=== PATIENT | female | born 1980 | race Caucasian/White ===

== ENCOUNTER 2017-01-03 12:25 | Emergency (ER) | payer OTHER ==
[2017-01-03 12:45] VITALS: BMI 20.3
--- NOTE | 2017-01-03 13:00 | PDOC ---
History of Present Illness - General History Source: Patient Exam Limitations: Intoxication - History of Present Illness Initial Comments: 01/03/17 13:41 The patient is a 36 year old female with significant past medical history of alcohol abuse who presents to the emergency department intoxicated. The patient states she is going through withdrawals. The patient tried to go to [facility] earlier today but was referred to the ED for intoxication and an abrasion on her right cheek. The patient is unsure when she fell. She states she drinks once a week. History is limited secondary to patients condition. <Ladan Galeas - Last Filed: 01/03/17 13:52> <Kerry Cortez - Last Filed: 01/05/17 09:52> <Lorraine Osorio - Last Filed: 01/05/17 10:12> - General Chief Complaint: Alcohol intoxication Stated Complaint: INTOX Time Seen by Provider: 01/03/17 12:48 Past History <Ladan Galeas - Last Filed: 01/03/17 13:52> <Kerry Cortez - Last Filed: 01/05/17 09:52> - Past Medical History Anemia: No Asthma: No Cancer: No Cardiac Disorders: No CVA: No COPD: No CHF: No Dementia: No Diabetes: No GI Disorders: No Disorders: No HTN: No Hypercholesterolemia: No Kidney Stones: No Liver Disease: No Suicide Attempt (Hx): No (denies) Seizures: No Thyroid Disease: No Other medical history: alcohol abuse - Surgical History Abdominal Surgery: No Appendectomy: No Cardiac Surgery: No Cholecystectomy: No Lung Surgery: No Neurologic Surgery: No Orthopedic Surgery: No - Reproductive History PID: No - Psycho/Social/Smoking Cessation Hx Anxiety: No Suicidal Ideation: No Smoking History: Never smoked Have you smoked in the past 12 months: No Number of Cigarettes Smoked Daily: 3 If you are a former smoker, when did you quit?: 1 Cigars Per Day: 2 Information on smoking cessation initiated: No 'Breaking Loose' booklet given: 08/15/16 Hx Alcohol Use: Yes (vodka a lot) Drug/Substance Use Hx: No Substance Use Type: Alcohol Hx Substance Use Treatment: Yes <Lorraine Osorio - Last Filed: 01/05/17 10:12> - Past Medical History Allergies/Adverse Reactions: Allergies Allergy/AdvReac Type Severity Reaction Status Date / Time penicillin G Allergy Severe Hives Verified 08/15/16 16:19 Home Medications: Ambulatory Orders NK [No Known Home Medication] 01/20/16 Review of Systems - Review of Systems Able to Perform ROS?: No (Intoxicated) <Ladan Galeas - Last Filed: 01/03/17 13:52> *Physical Exam - Vital Signs Last Vital Signs Temp Pulse Resp BP Pulse Ox 97 F L 120 H 18 125/80 100 01/03/17 12:25 01/03/17 12:25 01/03/17 12:25 01/03/17 12:25 01/03/17 12:25 - Physical Exam Comments: 01/03/17 13:52 GENERAL: Awake, alert, +alcohol on breath, in no acute distress HEAD: +Abrasion to right cheek. EYES: +Horizontal nystagmus. PERRLA, EOMI, sclera anicteric, conjunctiva clear ENT: Auricles normal inspection, hearing grossly normal, nares patent, oropharynx clear without exudates. Moist mucosa NECK: Normal ROM, supple, no lymphadenopathy, JVD, or masses LUNGS: Breath sounds equal, clear to auscultation bilaterally. No wheezes, and no crackles HEART: Regular rate and rhythm, normal S1 and S2, no murmurs, rubs or gallops ABDOMEN: Soft, nontender, normoactive bowel sounds. No guarding, no rebound. No masses EXTREMITIES: Normal range of motion, no edema. No clubbing or cyanosis. No cords, erythema, or tenderness NEUROLOGICAL: Cranial nerves II through XII grossly intact. Normal speech SKIN: Warm, Dry, normal turgor, no rashes or lesions noted. <AdalJoseLadan - Last Filed: 01/03/17 13:52> - Vital Signs Last Vital Signs Temp Pulse Resp BP Pulse Ox 97.9 F 98 H 18 93/48 95 01/03/17 20:12 01/03/17 20:12 01/03/17 20:12 01/03/17 20:12 01/03/17 20:12 <Kerry Cortez - Last Filed: 01/05/17 09:52> - Vital Signs Last Vital Signs Temp Pulse Resp BP Pulse Ox 97 F L 120 H 18 125/80 100 01/03/17 12:25 01/03/17 12:25 01/03/17 12:25 01/03/17 12:25 01/03/17 12:25 <Lorraine Osorio - Last Filed: 01/05/17 10:12> ED Treatment Course - LABORATORY CBC & Chemistry Diagram: 01/03/17 13:03 01/03/17 13:03 - Medications Given in the ED: ED Medications Discontinued Medications Generic Name Dose Route Start Last Admin Trade Name Freq PRN Reason Stop Dose Admin Haloperidol 5 mg 01/03/17 13:01 01/03/17 13:08 Haldol Injection (Fast Acting) - IM 01/03/17 13:02 5 mg ONCE ONE Administration Lorazepam 2 mg 01/03/17 13:01 01/03/17 13:07 Ativan Injection - IM 01/03/17 13:02 2 mg ONCE ONE Administration <Ladan Galeas - Last Filed: 01/03/17 13:52> - LABORATORY CBC & Chemistry Diagram: 01/03/17 13:03 01/03/17 13:03 - ADDITIONAL ORDERS Additional order review: Laboratory Results 01/03/17 01/03/17 01/03/17 13:03 13:03 13:03 Sodium 146 H Potassium 4.7 D Chloride 111 H D Carbon Dioxide 23 Anion Gap 12 BUN 7 Creatinine 0.5 L D Creat Clearance w eGFR > 60 Random Glucose 101 D Calcium 8.9 Total Bilirubin 0.3 D AST 41 H D ALT 38 D Alkaline Phosphatase 77 D Total Protein 7.7 Albumin 4.1 Serum , Qual Negative Alcohol, Quantitative 475.3 H* 01/03/17 13:03 RBC 3.95 MCV 103.6 H MCHC 33.5 RDW 13.5 MPV 8.2 D Neutrophils % 52.2 Lymphocytes % 33.6 Monocytes % 12.2 H Eosinophils % 1.4 Basophils % 0.6 - Medications Given in the ED: ED Medications Discontinued Medications Generic Name Dose Route Start Last Admin Trade Name Freq PRN Reason Stop Dose Admin Haloperidol 5 mg 01/03/17 13:01 01/03/17 13:08 Haldol Injection (Fast Acting) - IM 01/03/17 13:02 5 mg ONCE ONE Administration Folic Acid 1 mg/ Thiamine HCl 1,000 mls @ 125 mls/hr 01/03/17 13:01 01/03/17 13 :45 100 mg/ Multivitamins/Minerals IVPB 01/03/17 21:00 125 mls/hr 10 ml/ Sodium Chloride ONCE ONE Administration Lorazepam 2 mg 01/03/17 13:01 01/03/17 13:07 Ativan Injection - IM 01/03/17 13:02 2 mg ONCE ONE Administration <Kerry Cortez - Last Filed: 01/05/17 09:52> - LABORATORY CBC & Chemistry Diagram: 01/03/17 13:03 01/03/17 13:03 <Lorraine Osorio - Last Filed: 01/05/17 10:12> Medical Decision Making - Medical Decision Making 01/03/17 17:[address] Cortez. Sent from [facility], where she was requesting detox for withdrawal, found to be intoxicated. She required sedation with ativan /haldol for agitation, as she was at risk for falls due to extreme intoxication. Found to have alcohol level >400. She has been sleeping comfortably. Continue to monitor to clinical sobriety, then can discuss if she would like detox. <Lorraine Osorio - Last Filed: 01/05/17 10:12> *DC/Admit/Observation/Transfer - Attestations Scribe Attestion: 01/03/17 13:41 Documentation prepared by Ladan Galeas, acting as medical technologist chemistry for Lorraine Osorio MD. <Ladan Galeas - Last Filed: 01/03/17 13:52> <Kerry Cortez - Last Filed: 01/05/17 09:52> - Discharge Dispostion Admit: No <Lorraine Osorio - Last Filed: 01/05/17 10:12> Diagnosis at time of Disposition: Alcohol intoxication Qualifiers: Complication of substance-induced condition: uncomplicated Qualified Code(s): F10.120 - Alcohol abuse with intoxication, uncomplicated - Discharge Dispostion Disposition: HOME Condition at time of disposition: Stable - Patient Instructions Printed Discharge Instructions: DI for Alcohol Abuse
[2017-01-03] MEDS ORDERED: LORAZEPAM CARPU-JECT 2 MG/ML DISP.SYRIN IM ONE (13:01)
[2017-01-03] MEDS ORDERED: HALOPERIDOL LACTATE 5 MG/ML IM ONE (13:01)
[2017-01-03] MEDS ORDERED: FOLIC ACID INJECTION - 1 MG, THIAMINE HCL 100 MG, MULTIVIT INJECTION ADULT 10 ML in SOD... IVPB ONE (13:01)
[2017-01-03] MEDS ORDERED: HALOPERIDOL LACTATE 5 MG/ML ONE (13:04)
[2017-01-03] MEDS ORDERED: LORAZEPAM CARPU-JECT 2 MG/ML DISP.SYRIN ONE (13:05)
[2017-01-03 13:39] LABS: BASOPHIL 0.6 % (0-2.0); EOSINOPHIL 1.4 % (0-4.5); MCH 34.7 pg (25.7-33.7); MCHC 33.5 g/dl (32.0-36.0); MEAN CELL VOLUME 103.6 fl (80-96); MEAN PLT VOLUME 8.2 fl (7.5-11.1); NEUTROPHILS 52.2 % (42.8-82.8); PLATELET COUNT 203 K/MM3 (134-434); RDW 13.5 % (11.6-15.6); WHITE BLOOD COUNT 6.3 K/mm3 (4.0-10.0)
[2017-01-03 14:51] LABS: ALBUMIN 4.1 g/dl (3.4-5.0); ALK PHOS 77 U/L (45-117); ANION GAP 12 (8-16); BILIRUBIN,TOTAL 0.3 mg/dL (0.2-1.0); CALCIUM 8.9 mg/dL (8.5-10.1); CO2 23 mmol/L (21-32); CREATININE 0.5 mg/dL (0.55-1.02); GLUCOSE,RANDOM 101 mg/dL (74-106); SGPT/ALT 38 U/L (12-78); TOT PROT 7.7 g/dl (6.4-8.2)
[2017-01-03 14:53] LABS: SGOT/AST 41 U/L (15-37)
[2017-01-03 20:13] VITALS: PULSE 98; TEMP 97.9
[2017-01-03 23:23] VITALS: BP 123/71
== END 2017-01-03 23:40 | disposition home or self-care (01) ==
LOC: JER 12:25
PROC: 3E023NZ Introduction of Analgesics, Hypnotics, Sedatives into Muscle, Percutaneous Approach (ICD-10-PCS; principal; 2017-01-03)
PROC: 3E0233Z Introduction of Anti-inflammatory into Muscle, Percutaneous Approach (ICD-10-PCS; 2017-01-03)
PROC: 3E0337Z Introduction of Electrolytic and Water Balance Substance into Peripheral Vein, Percutaneous Approach (ICD-10-PCS; 2017-01-03)
DX: F10.120 Alcohol abuse with intoxication, uncomplicated (principal); Y90.8 Blood alcohol level of 240 mg/100 ml or more; S00.81XA Abrasion of other part of head, initial encounter; W19.XXXA Unspecified fall, initial encounter; Y93.89 Activity, other specified; Y92.89 Other specified places as the place of occurrence of the external cause
CPT/HCPCS: 36415; 70450-TC; 80053; 80307; 84703; 85025; 96360; 96361; 96372; 99284-25